=== PATIENT | female | born 1975 | race Caucasian/White ===

== ENCOUNTER 2020-07-14 21:21 | Emergency (ER) | payer MEDICAID ==
[~2020-07-14] VITALS: Ht 167.6 cm; Wt 62.0 kg
--- NOTE | 2020-07-14 21:51 | NUR ---
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 call light within reach. pt sleepy but arousable to voice, states that she feels ready to go home already. this rn informed pt that she needs to be more alert and able to breathe room air before she can leave, pt verbalizes understanding and agreement with plan of care. pt immediately returns to rest, eyes closed and respirations even and unlabored. pt with nc at 1l/min to maintain spo2 at 95%.
--- NOTE | 2020-07-14 23:15 | NUR ---
pt satting well on room air, awake and alert, states headache is resolved and that she would like to go home. pt states her daughter is coming to pick her up, states that she feels safe to go. aware.
[2020-07-14 23:24] VITALS: BP 110/76
== END 2020-07-14 23:35 | disposition home or self-care (01) ==
LOC: ED 23:15
DX: T40.1X1A Poisoning by heroin, accidental (unintentional), initial encounter (principal); F11.129 Opioid abuse with intoxication, unspecified; Z72.9 Problem related to lifestyle, unspecified; R94.31 Abnormal electrocardiogram [ECG] [EKG]; F17.200 Nicotine dependence, unspecified, uncomplicated
CPT/HCPCS: 93005; 99283